=== PATIENT | female | born 1980 | race Caucasian/White ===

== ENCOUNTER 2019-03-31 22:29 | Emergency (ER) | payer OTHER ==
[~2019-03-31] VITALS: Ht 162.6 cm; Wt 60.0 kg
[2019-03-31 23:56] VITALS: BP 106/74
== END 2019-04-01 00:03 | disposition home or self-care (01) | DRG 605 ==
LOC: ED 22:29
DX: S50.01XA Contusion of right elbow, initial encounter (principal); F17.210 Nicotine dependence, cigarettes, uncomplicated; W22.8XXA Striking against or struck by other objects, initial encounter; Y93.I9 Activity, other involving external motion; Y92.831 Amusement park as the place of occurrence of the external cause

== ENCOUNTER 2021-01-24 17:06 | Emergency (ER) | payer BC ==
[2021-01-24] MEDS ORDERED: LEXAPRO10 MG PO (17:26)
[2021-01-24] MEDS ORDERED: TOPROL XL100 MG PO (17:26)
[2021-01-24 17:28] VITALS: BP 124/64
[2021-01-24] MEDS ORDERED: AMOXICILLIN500 M2 PO (17:57)
== END 2021-01-24 18:19 | disposition home or self-care (01) | DRG 153 ==
LOC: ED 17:06
DX: J06.9 Acute upper respiratory infection, unspecified (principal); F17.200 Nicotine dependence, unspecified, uncomplicated; Z20.822 Contact with and (suspected) exposure to COVID-19

== ENCOUNTER 2022-12-31 18:13 | Emergency (ER) | payer OTHER ==
[~2022-12-31] VITALS: Ht 162.6 cm; Wt 82.0 kg
[~2022-12-31 18:13] MED LIST: AMOX/K CLAV875 M1 PO; AMOXICILLIN500 M2 PO; BENZONATATE200 MG PO; LEXAPRO10 MG PO; MEDDOSEPAK PO; TOPROL XL100 MG PO
[2022-12-31 19:03] VITALS: BP 132/83
[2022-12-31 19:43] LABS: BASO% 0.3 % (0-3); EOS% 1.1 % (0-8); HEMATOCRIT 43.5 % (37.0-47.0); HEMOGLOBIN 14.8 g/dl (12.0-16.0); IMMATURE GRANULOCYTES 0.2 % (0.0-5.0); MEAN CELL VOLUME 89.5 fL CALC (80.0-100.0); MEAN CORPUSCULAR HGB 30.5 pG CALC (26.0-32.0); MONO% 5.6 % (2-13); NEUT# 7.14 thou/uL (2.00-7.15); NEUT% 62.8 % (42-76); RED BLOOD COUNT 4.86 mill/uL (4.20-5.60); RED CELL DISTRI WIDTH 13.1 % (11.5-15.5)
[2022-12-31 20:05] LABS: ANION GAP 12 (6-22 (CALC)); BUN 19 mg/dL (7-17); BUN/CREATININE RATIO 25 (12-20 (CALC)); CARBON DIOXIDE 26 mmol/l (22-30); CHLORIDE 101 mmol/l (95-108); CREATININE 0.7 mg/dL (0.5-1.0); GFR FOR AFR.AMER. > 60 ML/MIN (>=60 (CALC)); GFR OTHER RACES > 60 ML/MIN (>=60 (CALC)); SODIUM 135 mmol/l (137-146)
[2022-12-31] MEDS ORDERED: ROBITUSSIN AC10 ML PO (20:11)
[2022-12-31] MEDS ORDERED: VOLTAREN75 MG PO (20:11)
[2022-12-31 20:16] VITALS: BP 132/83
== END 2022-12-31 20:25 | disposition home or self-care (01) | DRG 563 ==
LOC: ED 18:13
PROVIDERS: Family Medicine
DX: S29.011A Strain of muscle and tendon of front wall of thorax, initial encounter (principal); X58.XXXA Exposure to other specified factors, initial encounter; R07.81 Pleurodynia; F17.210 Nicotine dependence, cigarettes, uncomplicated

== ENCOUNTER 2023-09-29 22:37 | Emergency (ER) | payer OTHER ==
[~2023-09-29] VITALS: Ht 162.6 cm; Wt 77.0 kg
[~2023-09-29 22:37] MED LIST changes: +ALLERGY RE50 MCG/ACT NAB; +AZELASTINE HYD0.15 % NAB; +AZELASTINE HYDR1 SPR NAB; +ROBITUSSIN AC10 ML PO; +VOLTAREN75 MG PO
[2023-09-29 22:45] VITALS: BP 115/78
[2023-09-30 01:00] VITALS: BP 115/78
== END 2023-09-30 01:25 | disposition home or self-care (01) | DRG 605 ==
LOC: ED 22:37
DX: S90.31XA Contusion of right foot, initial encounter (principal); F17.200 Nicotine dependence, unspecified, uncomplicated; W22.03XA Walked into furniture, initial encounter